=== PATIENT | female | born 1950 | race Caucasian/White ===

== ENCOUNTER 2020-06-12 09:31 | Outpatient (CLI) | payer MEDICARE, SELFPAY ==
--- NOTE | ~2020-06-12 | MM_ITS ---
EXAMINATION: MM screening flora BI w hayley HISTORY: Screening TECHNIQUE: Craniocaudal and mediolateral oblique 3-D tomosynthesis images were obtained and synthetic 2-D images were generated. CAD analysis was submitted and interpreted. COMPARISON: No prior mammogram is available for comparison at this institution. Comparison to multipl e prior studies sequentially, with oldest reviewed study dated 12/27/2014. BREAST PARENCHYMAL COMPOSITION: There are scattered areas of fibroglandular density. FINDINGS: There is no evidence of suspicious mass, calcification, or architectural distortion to sugg est malignancy in either breast. There has been no suspicious interval change. IMPRESSION: 1. No mammographic evidence of malignancy. 2. Recommend routine screening mammography in one year. BI-RADS Category 1: Negative Reviewed, dictated and finalized at location A. NG PLANT OPERATOR
== END 2020-06-12 09:32 | disposition home or self-care (01) ==
PROVIDERS: PCP Internal Medicine; Visit Provider Obstetrics & Gynecology
DX: Z12.31 Encounter for screening mammogram for malignant neoplasm of breast (principal)
CPT/HCPCS: 77063; 77067

== ENCOUNTER 2021-06-24 10:31 | Outpatient (CLI) | payer MEDICARE, SELFPAY ==
--- NOTE | ~2021-06-24 | MM_ITS ---
EXAMINATION: MM screening [facility] BI w hayley HISTORY: Screening mammogram TECHNIQUE: Craniocaudal and mediolateral oblique 3-D tomosynthesis images were obtained and synthetic 2-D images were generated. CAD analysis was submitted and interpreted. COMPARISON: 06/12/2020, 04/22/2019 BREAST PARENCHYMAL COMPOSITION: There are scattered areas of fibroglandular density. FINDINGS: RIGHT BREAST: There is a possible mass in the middle third of the outer breast 6 cm from the nipple. LEFT BREAST: There is no evidence of suspicious mass, calcification, or architectural distortion to s uggest malignancy. There has been no significant interval change. IMPRESSION: 1. Possible right breast mass. 2. Additional mammographic views and possible breast ultrasound are recommended. BI-RADS Category 0: Incomplete: Needs additional imaging evaluation. Reviewed, dictated and finalized at location A. ING MAN IMPRESSION: 1. Possible right breast mass. 2. Additional mammographic views and possible breast ultrasound are recommended . BI-RADS Category 0: Incomplete: Needs additional imaging evaluation.
== END 2021-06-24 10:32 | disposition home or self-care (01) ==
LOC: ANHIMG 10:33
PROVIDERS: PCP Internal Medicine; Visit Provider Obstetrics & Gynecology
DX: Z12.31 Encounter for screening mammogram for malignant neoplasm of breast (principal); R92.8 Other abnormal and inconclusive findings on diagnostic imaging of breast
CPT/HCPCS: 77063; 77067

== ENCOUNTER 2021-07-16 12:06 | Outpatient (CLI) | payer MEDICARE, SELFPAY ==
--- NOTE | ~2021-07-16 | MMUS_ITS ---
EXAMINATION: MM diagnostic flora RT w hayley, US breast RT limited HISTORY: Follow-up right breast asymmetry TECHNIQUE: Additional 3-D tomosynthesis images of the right breast were performed and synthetic 2-D i mages were generated. CAD analysis was submitted and interpreted. High resolution Limited right breas t ultrasound was performed. COMPARISON: Comparison to multiple prior studies sequentially, with oldest reviewed study dated 02/23. BREAST PARENCHYMAL COMPOSITION: Breast composed of scattered areas of fibroglandular density. FINDINGS: MAMMOGRAPHIC FINDINGS: There are no suspicious masses, calcifications or architectural distortion in the right breast to sug gest malignancy. ULTRASOUND: Limited right breast ultrasound: At 9:00, 5 cm from the nipple there is a 3 mm cyst. At 10:00, 5 cm f rom the nipple there is a 3 mm cyst. No suspicious masses to suggest malignancy. IMPRESSION: 1. No evidence for malignancy in the right breast. 2. Routine yearly screening mammogram and regular clinical breast examination are recommended. BI-RADS Category 2: Benign finding(s). Reviewed, dictated and finalized at location A. ER SETTER IMPRESSION: 1. No evidence for malignancy in the right breast. 2. Routine yearly screening mammogram and regular clinical breast examination a re recommended. BI-RADS Category 2: Benign finding(s).
== END 2021-07-16 12:07 | disposition home or self-care (01) ==
LOC: ANHIMG 12:07
PROVIDERS: PCP Internal Medicine; Visit Provider Obstetrics & Gynecology
DX: R92.8 Other abnormal and inconclusive findings on diagnostic imaging of breast (principal)
CPT/HCPCS: 76642; 77061; 77065; G0279

== ENCOUNTER 2021-12-24 10:16 | Outpatient (CLI) | payer MEDICARE, SELFPAY ==
--- NOTE | ~2021-12-24 | XR_ITS ---
EXAMINATION: XR chest 2V 12/24/2021 10:32 INDICATION: Shortness of breath PROCEDURE: 2 view chest COMPARISON: /Oh 11/2012 FINDINGS: The lungs are clear. The cardiomediastinal silhouette is within normal limits. There are no pleural effusions. There is no pneumothorax suspected. There is a hiatal hernia. IMPRESSION: 1: NO ACUTE CARDIOPULMONARY DISEASE. 2: Moderate sized hiatal hernia. Reviewed, dictated and finalized at location A.
== END 2021-12-24 10:17 | disposition home or self-care (01) ==
PROVIDERS: PCP Internal Medicine; Visit Provider Internal Medicine
DX: R06.02 Shortness of breath (principal); K44.9 Diaphragmatic hernia without obstruction or gangrene
CPT/HCPCS: 71046

== ENCOUNTER 2021-12-25 16:13 | Outpatient (CLI) | payer MEDICARE, SELFPAY ==
[2021-12-25 17:29] LABS: Iron 33 ug/dL (37-170)
[2021-12-25 17:39] LABS: Percent Iron Saturation 7 % (20-50)
[2021-12-25 18:05] LABS: Ferritin 7.58 ng/mL (11.1-264)
== END 2021-12-25 16:14 | disposition home or self-care (01) ==
PROVIDERS: PCP Internal Medicine; Visit Provider Internal Medicine
DX: D64.9 Anemia, unspecified (principal); D50.9 Iron deficiency anemia, unspecified
CPT/HCPCS: 36415; 82728; 83540; 83550

== ENCOUNTER 2021-12-26 07:37 | Outpatient (RCR) | payer MEDICARE, SELFPAY ==
[2021-12-26] VITALS (10 sets, daily range): BP systolic 136–155; BP diastolic 59–79; PULSE 73–86; RESP 16–18; TEMP 37–37.4; O2SAT 100
[2021-12-26 08:38] LABS: Hematocrit 20.2 % (37.0-47.0); Hemoglobin 5.7 g/dL (12.0-15.0)
[2021-12-26] MEDS: SODIUM CHLORIDE 0.9% IV 250 ML 30 ML IV CONT (09:45)
== END 2022-03-26 23:59 | disposition home or self-care (01) ==
LOC: ANHCPCTRAN 07:37
PROVIDERS: PCP Internal Medicine; Visit Provider Internal Medicine
DX: D64.9 Anemia, unspecified (principal)
CPT/HCPCS: 36415; 36430; 85014; 85018; 86850; 86900; 86901; 86920; J7050; P9016

== ENCOUNTER 2022-09-17 08:16 | Outpatient (CLI) | payer MEDICARE, SELFPAY ==
--- NOTE | ~2022-09-17 | MM_ITS ---
EXAMINATION: MM screening flora BI w hayley HISTORY: Screening mammogram TECHNIQUE: Craniocaudal and mediolateral oblique 3-D tomosynthesis images were obtained and synthetic 2-D images were generated. CAD analysis was submitted and interpreted. COMPARISON: 07/28/2021 diagnostic right mammogram and limited right breast ultrasound examination 06/24/2021, 06/2020 bilateral screening mammogram examinations BREAST PARENCHYMAL COMPOSITION: There are scattered areas of fibroglandular density. FINDINGS: There is no evidence of suspicious mass, calcification, or architectural distortion to sugg est malignancy in either breast. There has been no suspicious interval change. IMPRESSION: 1. No mammographic evidence of malignancy. 2. Recommend routine screening mammography in one year. BI-RADS Category 1: Negative Reviewed, dictated and finalized at location A. PEN SET ASSEMBLER
== END 2022-09-17 08:17 | disposition home or self-care (01) ==
LOC: ANHIMG 08:19
PROVIDERS: PCP Internal Medicine; Visit Provider Obstetrics & Gynecology
DX: Z12.31 Encounter for screening mammogram for malignant neoplasm of breast (principal)
CPT/HCPCS: 77063; 77067

== ENCOUNTER 2023-11-10 07:36 | Outpatient (CLI) | payer MEDICARE, SELFPAY ==
--- NOTE | ~2023-11-10 | MM_ITS ---
EXAMINATION: MM screening flora BI w hayley HISTORY: Screening TECHNIQUE: Craniocaudal and mediolateral oblique 3-D tomosynthesis images were obtained and synthetic 2-D images were generated. CAD analysis was submitted and interpreted. COMPARISON: Comparison to multiple prior studies sequentially, with oldest reviewed study dated 03/23. BREAST PARENCHYMAL COMPOSITION: Not dense: There are scattered areas of fibroglandular density. FINDINGS: There is no evidence of suspicious mass, calcification, or architectural distortion to sugg est malignancy in either breast. There has been no suspicious interval change. IMPRESSION: 1. No mammographic evidence of malignancy. 2. Recommend routine screening mammography in one year. BI-RADS Category 1: Negative Reviewed, dictated and finalized at location A.
== END 2023-11-10 07:37 | disposition home or self-care (01) ==
LOC: ANHIMG 07:39
PROVIDERS: PCP Internal Medicine; Visit Provider Obstetrics & Gynecology
DX: Z12.31 Encounter for screening mammogram for malignant neoplasm of breast (principal)
CPT/HCPCS: 77063; 77067

== ENCOUNTER 2024-11-11 09:17 | Outpatient (CLI) | payer MEDICARE, SELFPAY ==
--- NOTE | ~2024-11-11 | MM_ITS ---
EXAMINATION: MM screening flora BI w hayley HISTORY: Screening TECHNIQUE: Craniocaudal and mediolateral oblique 3-D tomosynthesis images were obtained and synthetic 2-D images were generated. CAD analysis was submitted and interpreted. COMPARISON: Comparison to multiple prior studies sequentially, with oldest reviewed study dated 04/22. BREAST PARENCHYMAL COMPOSITION: Not dense: There are scattered areas of fibroglandular density. FINDINGS: There is no evidence of suspicious mass, calcification, or architectural distortion to sugg est malignancy in either breast. There has been no suspicious interval change. IMPRESSION: 1. No mammographic evidence of malignancy. 2. Recommend routine screening mammography in one year. BI-RADS Category 1: Negative Reviewed, dictated and finalized at location A.
--- OUTSIDE RECORDS SUMMARY | 2024-11-11 09:21 | XMS_ITS | Clinical Summary ---
Author Organization [facility] Address [address] [place] [address] Care Team Providers Care Piece Dyeing Machine Tender Name Role Phone Unavailable Primary Care Provider Unavailabl e Source Comments [facility],non-owned Affiliates and Associated Physician Practices is amultiple site organization consisting of ambulatory clinics and hospital sitesin [place], [place], [place] and [place]. This disclosure is being madepursuant to the Care Everywhere program and may not contain all information available regarding this patient. Last updated 18.[facility] [employer] Social History Tobacco Use Types Packs/Day Years Used Date Smoking Tobacco: Never Assessed Sex and Gender Information Value Date Recorded Sex Assigned at Not on file Gender Identity Not on file Sexual Orientation Not on file Plan of Treatment Health Maintenance Due Date Last Done Comments BONE DENSITY TESTING 1950 COLOGUARD (AGES 45-75) - COL ON CA SCREENING 1952 COLON MONITORING 1952 COLONOSCOPY - COLON CA SCREENING 1952 CT COLONOGRAPHY - COLON CA SCREENING 1952 Colorectal Cancer Screening 1952 FIT - COLON CA SCREENING 1952 FLEX SIG - COLON CA SCREENING 1952 LIPID TESTING 1952 MAMMOGRAM 1950 MEDICARE AWV 12 MONTHS 1952 HEPATITIS C SCREENING 06/13/1970 DTAP/TDAP/TD VACCINES (1 - Tdap) 1971 PNEUMOCOCCAL VACCINE 50+ (1 of 1 - PCV) 2002 ZOSTER VACCINE (1 of 2) 2002 COVID-19 VACCINE ( - 2023-2 5 season) 2024 INFLUENZA VACCINE (#1) 2024 DEPRESSION SCREENING 08/09/2024 Respiratory Syncytial Virus (RSV) Vaccine Pt: or over 60 yrs (1 - 1-dose 75+ series) 2027 HEPATITIS B VACCINE Aged Out No longe r eligible based on patient's age to complete this topic HIB VACCINE Aged Out No longer eligi ble based on patient's age to complete this topic HPV VACCINE Aged Out No longer eligi ble based on patient's age to complete this topic MENINGOCOCCAL (Group B) VACC INE SHARED DECISION-MAKING Aged Out No longer eligibl e based on patient's age to complete this topic MENINGOCOCCAL GROUPS A/C/Y/W VACCINE Aged Out No longer eligible b ased on patient's age to complete this topic
--- OUTSIDE RECORDS SUMMARY | 2024-11-11 09:21 | XMS_ITS | Continuity of Care Document ---
Author Organization [facility] Address [address] [place] [address] Phone Care Team Providers Care Cleaner Assistant Name Role Phone Brooks Pope MD, FACS Unavailable Unavailab le Allergies, Adverse Reactions, Alerts Substance Reaction Status Criticality telmisartan Active No Information codeine Active No Information Medications Medication Instructions Dosage Effective Dates (start - stop) Status Comments atorvastatin 20 mg tablet take 1 tablet by oral route every day 20 MG - Active ferrous sulfate 325 mg (65 mg iron) tablet take 1 tablet by oral route every day 325 MG - Active meloxicam 15 mg tablet take 1 tablet by oral route every day 15 MG - Active Collagen 6 g ORAL TABLET Take as directed - Active Turmeric 1000 mg ORAL CAPSULE Take 2 capsules by oral route every day - Active Glucosamine 1200mg ORAL CAPSULE Take 2 capsules by oral route every day - Active Vitamin B-12 5,000 mcg sublingual tablet take 1 tablet by oral route every day 1 tablet - Active Vitamin C 1,000 mg tablet take 1 by Oral route every day 1 - Active Vitamin D3 50 mcg (2,000 unit) tablet take 1 by oral route every day 1 - Active vitamin e 180 mcg ORAL CAPSULE Take 1 capsule by oral route every day - Active Calcium (unknown strength) Take 1 capsule by oral route twice a week Not Available - Active Aspirin Childrens 81 mg chewable tablet chew 2 tablet by oral route every day 162 MG - Active cetirizine 10 mg tablet take 1 tablet by oral route every day 10 MG - Active Procedures Procedure Date IOLMaster Corneal Topography No Charge Refraction No Charge GDX Retina Fundus Photography W/ Report Office/outpatient Visit, [facility] IOLMaster-Technical Advance Directives Directive Yes / No Effective Date File Name Other Directive No N/A N/A WARNING:The information contained in this section is historical and is provided for information only and does not constitute a legal document or any assurance that the information is still accurate. Please verify the information with the anne of the legal document before using it for clinical purposes. Encounters Encounter Description Practice Location Reason(s) For Visit Diagnoses Date Provider Providers Copied on [facility]counter [facility], [facility] [address] [place], [place], [id number], tel:[phone] [place] Professional Cataract evaluation (chief complaint) Combined forms of age-related cataract, bilateralIncr eased corneal thickness of both eyes Niko Guy. [address], [place], [place], [id number], [place]. tel:[phone] Referring Provider: Armando Engle OD F, [address], [place], [address]. tel:[phone] [facility], [address], [place], [place], [id number], tel:[phone] [place] Professional No Information Niko Guy. [address], [place], [place], [id number], [place]. tel:[phone] Referring Provider: Armando Engle OD F, [address], [place], [address]. tel:[phone] Family History Family Member Type Diagnosis Age At Onset No Information Payers Payer name Insurance type Covered democrat ID Authoriza tion(s) [place] [id number] [facility] [id number] Social History Type Description Quantity Date Captured Comments Alcohol Use Details No Caffeine Use Details No Tobacco Use Status Current non-smoker Smoking Status Never smoker Non-Smoking Tobacco Use Details : No Details Available : No Details Available Sex Female Chief Complaint And Reason For Visit From encounter dated 05/03/2024 08:45'. Cataract evaluation (chief complaint). Description: The 73 year old patient presents for a cataractevaluation ou per Dr. Engle. Patient wears Monovision RGP with OS for NV. Patient doesn't have any cataracts complaints at this time. Patient wanted to get established with Dr. Pope. Reason For Referral Reason For Referral No Information History Of Present Illness Encounter Date Complaint History Of Prese nt Illness Cataract evaluation The 73 year old patient presents for a cataract evaluation ou per Dr. Engle. Patient wears Monovision RGP with OS for NV. Patient doesn't have any cataracts complaints at this time. Patient wanted to get established with Dr. Pope. Functional Status Date Functional Assessmen t No Information Instructions Date Instruction Additional Infor mation Impression/Plan Assessments Type Assessment Date assessment Combined forms of age-related ca taract, bilateral assessment Increased corneal thickness of b oth eyes Patient Care Teams Name Effective Dates (start - stop) Status Members No Information
--- OUTSIDE RECORDS SUMMARY | 2024-11-11 09:21 | XMS_ITS | Encounter Summary ---
Author Organization [facility] Address [address] [place] [address] Care Team Providers Care Photographer Aerial Name Role Phone Unavailable Primary Care Provider Unavailabl e Encounter Details Date Type Department Care Team (Late st Contact Info) Description 06/21/2024 Lab Requisition [facility] - DermPath Lab [address] [place] [id number] Shon Mcneal MD [address] [place] [address] Social History Tobacco Use Types Packs/Day Years Used Date Smoking Tobacco: Never Assessed Sex and Gender Information Value Date Recorded Sex Assigned at Not on file Gender Identity Not on file Sexual Orientation Not on file documented as of this encounter Plan of Treatment Not on file documented as of this encounter Procedures Procedure Name Priority Date/Time Associated Diagnosis Comments DERMATOPATHOLOGY Routine 06/20/2024 12:0 0 AM RADIO FREQUENCY TECHNICIAN documented in this encounter Results * DERMATOPATHOLOGY (06/20/2024 12:00 AM RADIO FREQUENCY TECHNICIAN) Case Report Dermatopathology Report Case: [id number] Authorizing Provider: Shon Mcneal MD Collected: 06/20/2024 12:00 AM Ordering Location: [facility] - Received: 06/22/2024 07:10 AM DermPath Lab Pathologist: Zuleima Zavala MD Specimens: A) - Skin, right lower ana lilia medial pretibia B) - Skin, left lower ana lilia lateral pretibia 1:49 PM RADIO FREQUENCY TECHNICIAN DERMATOPATHOLOGY LABORATORY Final Diagnosis Specimen A. SKIN, right lower ana lilia medial pretibia: DERMATOFIBROMA (D23.9) Specimen B. SKIN, left lower ana lilia lateral pretibia: ACANTHOSIS AND VERRUCOUS HYPERKERATOSIS (L98.8) (see microscopic description and comment) 4 1:49 PM [facility] DERMATOPATHOLOGY LABORATORY Clinical History A: R/o SCC vs DF B: R/o DF vs SCC vs ISK 4 1:49 PM [facility] DERMATOPATHOLOGY LABORATORY Gross Description Specimen A: Received is one formalin filled container labeled with the patient's name and designated right lower ana lilia medial pretibia. The specimen consists of a shave biopsy measuring 9x9x2 mm. Jar 0. Specimen B: Received is one formalin filled container labeled with the patient's name and designated left lower ana lilia lateral pretibia. The specimen consists of a shave biopsy measuring 42d72u2 mm. Jar 0. 4 1:49 PM [facility] DERMATOPATHOLOGY LABORATORY Microscopic Description Specimen A. SKIN, right lower ana lilia medial pretibia: There is epidermal hyperplasia. Within the dermis, there are fibrohistiocytic cells in haphazard array among coarse collagen bundles. Specimen B. SKIN, left lower ana lilia lateral pretibia: Sections show a superficial biopsy with verrucous acanthosis and hyperkeratosis. There is minimal dermis present for evaluation with scattered fibroblasts. COMMENT: These histological findings could represent the superficial portions of a dermatofibroma. A benign verrucous keratosis with dermal fibrosis is also a consideration. 4 1:49 PM [facility] DERMATOPATHOLOGY LABORATORY Disclaimer An external and internal positive and negative controls are appropriate for the histochemical, immunohistochemical and immunofluorescence stain(s) in this case (if any), except where stated explicitly. The performance characteristics of the stain(s) cited in this report were developed and its performance characteristic determined by the Dermatopathology Laboratory at [facility], directed by Dr. Cait Santizo. These tests need not be, and therefore are not, approved by the [place] Food and Drug Administration. The tests are used for clinical purposes. Billing Codes Specimen Charges Stain Charges 79859 [id number] 1 1 4 1:49 PM [facility] DERMATOPATHOLOGY LABORATORY Embedded Images 4 1:49 PM [facility] DERMATOPATHOLOGY LABORATORY Pathology/Cytology TISSUE SPECIMEN FROM SKIN / Unknown 06/20/2024 06/22/2024 7:10 AM RADIO FREQUENCY TECHNICIAN Miscellaneous samples (specimen) TISSUE SPECIMEN FROM SKIN / Unknown 06/20/2024 06/22/2024 7:10 AM RADIO FREQUENCY TECHNICIAN Shon Mcneal MD LAB - PATHOLOGY/CYTO LOGY ORDERABLES DERMATOPATHOLOGY LABORATORY [facility] - Department of Dermatology [facility] [address] [place] [address], [address] [phone] documented in this encounter Visit Diagnoses Not on filedocumented in this encounter
== END 2024-11-11 09:18 | disposition home or self-care (01) ==
LOC: ANHIMG 09:19
PROVIDERS: PCP Internal Medicine; Visit Provider Obstetrics & Gynecology
DX: Z12.31 Encounter for screening mammogram for malignant neoplasm of breast (principal)
CPT/HCPCS: 77063; 77067